=== PATIENT | male | born 1950 | race Caucasian/White ===

== ENCOUNTER 2019-04-21 07:05 | Outpatient (CLI) | payer MEDICARE, OTHER, SELFPAY ==
--- NOTE | 2019-04-21 07:30 | XR_ITS ---
WS: [id number] XR KUB [id number] REASON FOR EXAM: urolithiasis FINDINGS: Stones in both kidneys are again seen similar to the previous exam April 21, 2018 no eboni nge in size of the stones are seen. There is degenerate changes and scoliosis in the lower lumbar spine. XR/XR KUB 80195 IMPRESSION: Unchanged bilateral renal calculus.
== END 2019-04-21 07:06 | disposition home or self-care (01) ==
LOC: RAD 07:09
PROVIDERS: Family Provider Family Medicine; PCP Family Medicine; Visit Provider Urology
DX: N20.9 Urinary calculus, unspecified (principal); N20.0 Calculus of kidney; Z12.5 Encounter for screening for malignant neoplasm of prostate
CPT/HCPCS: 74018; 81001

== ENCOUNTER 2020-06-23 07:19 | Outpatient (CLI) | payer MEDICARE, OTHER, SELFPAY ==
--- NOTE | 2020-06-23 07:27 | XR_ITS ---
WS: [id number] KUB, AP view, 06/22/2020 Clinical Data: kidney stone Comparison: KUB, 04/21/2019. Findings: No abnormal intraabdominal masses are seen. There is no dilatated small bowel or evidence of obstruct ion. Bilateral calcifications are overlying the kidneys unchanged. Colon gas does obscure detail over both kidneys. XR/XR KUB 71081 Impression: No change in probable bilateral renal calcifications.
== END 2020-06-23 07:20 | disposition home or self-care (01) ==
LOC: RAD 07:25
PROVIDERS: PCP Nurse Practitioner Family; Visit Provider Urology
DX: N20.0 Calculus of kidney (principal)
CPT/HCPCS: 74018; 81003; G0103

== ENCOUNTER 2021-06-27 07:18 | Outpatient (CLI) | payer MEDICARE, OTHER, SELFPAY ==
--- NOTE | 2021-06-27 07:45 | XR_ITS ---
WS: [id number] KUB, AP view, 06/27/2021 Clinical Data: Urolithiasis Comparison: KUB, 06/23/2020. Findings: No abnormal intraabdominal masses are seen. There is no dilatated small bowel or evidence of obstruct ion. There are bilateral calcifications overlying both kidneys. There is moderate degenerative change of t he lower lumbar vertebral bodies. XR/XR KUB [id number] Impression: Probable bilateral renal calcifications unchanged.
== END 2021-06-27 07:19 | disposition home or self-care (01) ==
LOC: RAD 07:19
PROVIDERS: PCP Nurse Practitioner Family; Visit Provider Urology
DX: N20.9 Urinary calculus, unspecified (principal)
CPT/HCPCS: 74018; 81003

== ENCOUNTER 2022-06-20 08:25 | Outpatient (CLI) | payer MEDICARE, OTHER, SELFPAY ==
[2022-06-20 09:38] LABS: PSA Screen - Urology 2.15 ng/mL (0-4)
== END 2022-06-20 08:26 | disposition home or self-care (01) ==
LOC: LAB 08:33
PROVIDERS: PCP Nurse Practitioner Family; Visit Provider Urology
DX: Z12.5 Encounter for screening for malignant neoplasm of prostate (principal)
CPT/HCPCS: 36415; G0103

== ENCOUNTER 2022-06-26 07:02 | Outpatient (CLI) | payer MEDICARE, OTHER, SELFPAY ==
--- NOTE | 2022-06-26 07:26 | XR_ITS ---
WS: [id number] Exam: XR KUB [id number] Date/Time of Exam: 06/26/2022 7:35 AM Reason For Exam: STONES No bowel obstruction or free air. Calcifications superimpose both kidneys and apparently represent kn own renal stones. No sign of organ enlargement. Regional bony elements are intact. Nonspecific bilate ral pelvic calcifications. Moderate degenerative changes of the lower lumbar spine. XR/XR KUB 14475 IMPRESSION: 1. Calcifications superimpose both kidneys and apparently represent known renal stones. The largest calcifications measure about 1 cm bilaterally. 2. No acute abdominal finding.
== END 2022-06-26 07:03 | disposition home or self-care (01) ==
PROVIDERS: PCP Nurse Practitioner Family; Visit Provider Urology
DX: N20.9 Urinary calculus, unspecified (principal); N20.0 Calculus of kidney; Z12.5 Encounter for screening for malignant neoplasm of prostate
CPT/HCPCS: 74018; 81003; 99213